=== PATIENT | male | born 1990 | race Caucasian/White ===

== ENCOUNTER 2016-08-22 18:55 | Emergency (ER) | payer OTHER ==
[~2016-08-22] VITALS: Ht 185.4 cm; Wt 183.7 kg
[2016-08-22 21:58] VITALS: BP 155/77
== END 2016-08-22 20:44 | disposition home or self-care (01) ==
LOC: ED 18:55
DX: M70.41 Prepatellar bursitis, right knee (principal); Y93.89 Activity, other specified